=== PATIENT | female | born 1970 | race Caucasian/White ===

== ENCOUNTER 2023-01-18 14:11 | Emergency (ER) | payer MEDICAID, SELFPAY ==
[2023-01-18 14:15] VITALS: BP 154/97; PULSE 87; RESP 17; TEMP 36.4; O2SAT 97; BMI 30.4
--- NOTE | 2023-01-18 14:26 | CT_ITS ---
The [address] [address] Patient Name: TOÑO HERNANDEZ MRN: [id number] date: 1970 Sex: F Assigned Patient Location: ER Current Patient Location: ER Accession/Order Number: [id number] Exam Date: 01/18/2023 15:07 Report Date: 01/18/2023 15:37 At the request of: ELLIS MCKEON Procedure: CT abdomen pelvis wo con CT abdomen pelvis wo con, 01/18/2023 3:07 PM EDT INDICATION: Right flank pain COMPARISON: This study was compared to the prior CT of abdomen dated 11/08/2005 TECHNIQUE: Axial images of the abdomen were obtained without administration of IV contrast. Multiplanar reformatted images were generated and reviewed as needed. Dose reduction techniques were achieved by using automated exposure control and/or adjustment of mA and/or kV according to patient size and/or use of iterative reconstruction technique. FINDINGS: Lungs: The base of lungs is clear. No pleural effusion is noted. Liver and gallbladder: There is status post cholecystectomy. No abnormality of the liver is noted. Genitourinary system: No hydronephrosis or nephrolithiasis is noted. No abnormality of the urinary bladder or visualized portion of the uterus and ovaries is noted given the limitation of noncontrast study. Other solid abdominal organs: adrenal glands, pancreas, and spleen are unremarkable. Aorta: The infrarenal abdominal aorta is nonaneurysmal. Free fluid: There is no free fluid in the abdomen pelvis. Lymph node: No lymph node enlargement by size criteria is noted. Bowel: No abnormality of small or large bowel is noted. Appendix is normal. Bone: There is no suspicious osteolytic or osteoblastic lesion. Mild degenerative changes of the right SI joint. CT/CT abdomen pelvis wo con IMPRESSION: No acute finding. No nephrolithiasis. Mild degenerative changes of the right SI joint. Electronically authenticated by: TATE CAI Date: 01/18/2023 15:37
--- NOTE | 2023-01-18 14:29 | ED.BACK1 ---
HPI - Back Pain/Injury General Chief Complaint: Back Pain/Injury Stated Complaint: BACK PAIN Time Seen by Provider: 01/18/23 14:15 Source: patient Mode of arrival: walk-in Limitations: no limitations History of Present Illness HPI Narrative: patient is a 52-year-old female presents to the emergency department for two day history of right flank pain. She has not had any fevers or vomiting. She denies any pain radiation into the lower extremities. No peripheral paresthesias. She denies any mechanism of injury or trauma although she has been doing yardwork. She has no abdominal pain. She does state that she has had some diarrhea. No medications taken prior to arrival. Related Data Home Medications Medication Instructions Recorded Confirmed albuterol sulfate 90 mcg/actuation inhalation 01/18/23 aerosol inhaler (Ventolin HFA) escitalopram oxalate 20 mg tablet mg 01/18/23 hydroxyzine pamoate 25 mg capsule mg 01/18/23 loratadine 10 mg tablet mg 01/18/23 Previous Rx's Medication Instructions Recorded methocarbamol 750 mg tablet 750 mg PO TID PRN pain #20 tabs 01/18/23 methylprednisolone 4 mg tablets in See Rx Instructions .Route 01/18/23 a dose pack (Medrol (Alvaro)) .COMPLEX #21 ea Allergies Allergy/AdvReac Type Severity Reaction Status Date / Time NSAIDS (Non-Steroidal Allergy Verified 01/18/23 14:22 Anti-Inflamma Review of Systems ROS Constitutional Denies: fever or chills Cardiovascular Denies: chest pain Respiratory Denies: shortness of breath or cough Gastrointestinal Reports: diarrhea; Denies: abdominal pain, nausea or vomiting Musculoskeletal Reports: back pain; Denies: neck pain Integumentary/Breast Denies: rash Neurological Denies: headache PFSH [facility] Social History Smoking status: Former smoker Exam Narrative Exam Narrative: Gen.: Awake, alert, in no distress Head: Normocephalic, atraumatic ENT: Moist mucous membranes Respiratory: No respiratory distress, lungs clear bilaterally Cardio: Regular rate and rhythm Gastrointestinal: Abdomen is soft, nondistended and nontender to palpation, diffuse tenderness of the right flank with no rashes or color change noted. No CVA tenderness Extremities: Moves extremities equally Psych: Normal mood and affect Neuro: No focal neuro deficit Skin: Warm, dry, intact Constitutional Vital Signs, click to edit/add: Last Vital Signs Temp 97.5 F L 01/18/23 14:15 Pulse 87 01/18/23 14:15 Resp 17 01/18/23 14:15 BP 154/97 H 01/18/23 14:15 Pulse Ox 97 01/18/23 14:15 O2 Del Method Room Air 01/18/23 14:15 Course Vital Signs Vital signs: Vital Signs Temperature 97.5 F L 01/18/23 14:15 Pulse Rate 87 01/18/23 14:15 Respiratory Rate 17 01/18/23 14:15 Blood Pressure 154/97 H 01/18/23 14:15 Pulse Oximetry 97 01/18/23 14:15 Oxygen Delivery Method Room Air 01/18/23 14:15 Temperature 97.5 F L 01/18/23 14:15 Pulse Rate 87 01/18/23 14:15 Respiratory Rate 17 01/18/23 14:15 Blood Pressure 154/97 H 01/18/23 14:15 Pulse Oximetry 97 01/18/23 14:15 Oxygen Delivery Method Room Air 01/18/23 14:15 MDM - Back Pain/Injury MDM Narrative Medical decision making narrative: patient medicated for pain in the Emergency Room. Labs studies, urine specimen are unremarkable and CT of the abdomen and pelvis without contrast shows no evidence of ureteral calculi or other abnormalities. Patient discharged home with muscle relaxants and Medrol Dosepak for comfort. Follow-up with PCP and return to the emergency department if symptoms change or worsen. Medical Records Attestation: I reviewed the patient's medical records. Lab Data Attestation: I reviewed the patient's lab results. Labs: Lab Results 01/18/23 01/18/23 Range/Units 14:35 14:40 WBC 8.7 (4.0-11.0) 10^3/uL RBC 4.29 (4.20-5.40) 10^6/uL Hgb 12.7 (12.0-16.0) g/dL Hct 38.6 (36.0-48.0) % MCV 90.0 (81.0-99.0) fL MCH 29.6 (26.7-34.0) pg MCHC 32.9 (29.9-35.2) g/dL RDW 12.6 (11.0-15.0) % Plt Count 309 (150-450) 10^3/uL MPV 9.3 L (9.5-13.5) fL Neut % (Auto) 46.3 (43.0-75.0) % Lymph % (Auto) 37.7 (20.5-60.0) % [place] % (Auto) 8.3 (1.7-12.0) % Eos % (Auto) 6.9 (0.9-7.0) % Baso % (Auto) 0.6 (0.2-2.0) % Neut # (Auto) 4.0 (1.4-6.5) 10^3/uL Lymph # (Auto) 3.3 (1.2-3.8) 10^3/uL [place] # (Auto) 0.7 (0.3-0.8) 10^3/uL Eos # (Auto) 0.6 (0.0-0.7) 10^3/uL Baso # (Auto) 0.1 (0.0-0.1) 10^3/uL Abs Immat Gran (auto) 0.02 (0.00-0.03) 10^3/uL Imm/Tot Granulo (auto) 0.2 (0.0-0.5) % Sodium 140 (136-145) mmol/L Potassium 4.0 (3.5-5.1) mmol/L Chloride 105 (98-107) mmol/L Carbon Dioxide 27.0 (21.0-32.0) mmol/L Anion Gap 12.0 BUN 14.0 (7.0-18.0) mg/dL Creatinine 0.85 (0.55-1.02) mg/dL Est GFR ( Amer) >60 (>=60) Est GFR (Non-Af Amer) >60 (>=60) BUN/Creatinine Ratio 16.5 Glucose 93 (74-106) mg/dL Calcium 8.9 (8.5-10.1) mg/dL Total Bilirubin 0.6 (0.2-1.0) mg/dL AST 21 (15-37) U/L ALT 43 (14-59) U/L Alkaline Phosphatase 88 (46-116) U/L Total Protein 7.5 (6.4-8.2) g/dL Albumin 3.7 (3.4-5.0) g/dL Globulin 3.8 g/dL Albumin/Globulin Ratio 1.0 Urine Color Yellow (YELLOW) Urine Clarity Clear (CLEAR) Urine pH 6.0 (5.0-9.0) Ur Specific [place] 1.020 (1.005-1.025) Urine Protein Negative (NEG/TRACE) mg/dL Urine Glucose (UA) Negative (NEGATIVE) mg/dL Urine Ketones Negative (NEGATIVE) mg/dL Urine Occult Blood Trace-i (NEGATIVE) Urine Nitrite Negative (NEGATIVE) Urine Bilirubin Negative (NEGATIVE) Urine Urobilinogen 0.2 (0.2-1.0) EU/dL Ur Leukocyte Esterase Negative (NEGATIVE) Urine RBC 0-2 (0-2) #/HPF Urine WBC 0-2 A (NONE SEEN) #/HPF Ur Squamous Epith Cells Few A (NONE/RARE) #/LPF Urine Crystals None seen (None Seen) #/HPF Urine Bacteria Trace A (NONE SEEN) #/HPF Urine Casts Seen A (NONE SEEN) #/LPF Hyaline Casts Rare Urine Mucus None seen (NONE SEEN) Ur Culture Indicated? No Imaging Data CT scan - abdomen: Attestation: I have reviewed the pertinent imaging results. Radiologist's impression: Procedure: CT abdomen pelvis wo con CT abdomen pelvis wo con, 01/18/2023 3:07 PM EDT INDICATION: Right flank pain COMPARISON: This study was compared to the prior CT of abdomen dated 11/08/2005 TECHNIQUE: Axial images of the abdomen were obtained without administration of IV contrast. Multiplanar reformatted images were generated and reviewed as needed. Dose reduction techniques were achieved by using automated exposure control and/or adjustment of mA and/or kV according to patient size and/or use of iterative reconstruction technique. FINDINGS: Lungs: The base of lungs is clear. No pleural effusion is noted. Liver and gallbladder: There is status post cholecystectomy. No abnormality of the liver is noted. Genitourinary system: No hydronephrosis or nephrolithiasis is noted. No abnormality of the urinary bladder or visualized portion of the uterus and ovaries is noted given the limitation of noncontrast study. Other solid abdominal organs: adrenal glands, pancreas, and spleen are unremarkable. Aorta: The infrarenal abdominal aorta is nonaneurysmal. Free fluid: There is no free fluid in the abdomen pelvis. Lymph node: No lymph node enlargement by size criteria is noted. Bowel: No abnormality of small or large bowel is noted. Appendix is normal. Bone: There is no suspicious osteolytic or osteoblastic lesion. Mild degenerative changes of the right SI joint. IMPRESSION: No acute finding. No nephrolithiasis. Mild degenerative changes of the right SI joint. Electronically authenticated by: TATE CAI Date: 01/18/2023 15:37 Discharge Plan Discharge Chief Complaint: Back Pain/Injury Clinical Impression: Low back pain Patient Disposition: Home, Self-Care Time of Disposition Decision: 15:45 Condition: Good Prescriptions / Home Meds: New methocarbamol 750 mg tablet 750 mg PO TID PRN (Reason: pain) Qty: 20 0RF methylprednisolone [Medrol (Alvaro)] 4 mg tablets,dose pack See Rx Instructions .ROUTE .COMPLEX Qty: 21 0RF Rx Instructions: Taper as directed No Action albuterol sulfate [Ventolin HFA] 90 mcg/actuation HFA aerosol inhaler INHALATION loratadine 10 mg tablet hydroxyzine pamoate 25 mg capsule escitalopram oxalate 20 mg tablet Instructions: Acute Low Back Pain (ED) Stand Alone Forms: Portal Instructions Referrals: Shaikh Valiente MD [Primary Care Provider] - 1 week
[2023-01-18] MEDS: ORPHENADRINE 60 MG/ 2 ML VIAL IM (14:44)
[2023-01-18 14:45] LABS: Basophils Absolute Auto 0.1 10^3/uL (0.0-0.1); Basophils Percent Auto 0.6 % (0.2-2.0); Eosinophils Absolute Auto 0.6 10^3/uL (0.0-0.7); Eosinophils Percent Auto 6.9 % (0.9-7.0); Hematocrit 38.6 % (36.0-48.0); Hemoglobin 12.7 g/dL (12.0-16.0); Immature Granulocytes Abs Auto 0.02 10^3/uL (0.00-0.03); Immature Granulocytes Pct Auto 0.2 % (0.0-0.5); Lymphocytes Absolute Auto 3.3 10^3/uL (1.2-3.8); Lymphocytes Percent Auto 37.7 % (20.5-60.0); Mean Corpuscular HGB Conc 32.9 g/dL (29.9-35.2); Mean Corpuscular Hemoglobin 29.6 pg (26.7-34.0); Mean Platelet Volume 9.3 fL (9.5-13.5); Monocytes Absolute Auto 0.7 10^3/uL (0.3-0.8); Monocytes Percent Auto 8.3 % (1.7-12.0); Neutrophils Percent Auto 46.3 % (43.0-75.0); Platelet Count 309 10^3/uL (150-450); Red Blood Count 4.29 10^6/uL (4.20-5.40); Red Cell Distribution Width 12.6 % (11.0-15.0); White Blood Count 8.7 10^3/uL (4.0-11.0)
[2023-01-18] MEDS: ONDANSETRON 4 MG RAPDIS TABLET SL (14:45)
[2023-01-18] MEDS: OXYCODONE HCL/ACETAMINOPHEN 5MG/325MG 1 TAB PO (14:45)
[2023-01-18 14:48] LABS: Bilirubin Urine NEGATIVE (NEGATIVE); Blood Urine TRACE-I (NEGATIVE); Clarity Urine CLEAR (CLEAR); Color Urine YELLOW (YELLOW); Glucose Urine UA NEGATIVE (NEGATIVE); Ketones Urine NEGATIVE (NEGATIVE); Leukocyte Esterase Urine NEGATIVE (NEGATIVE); Nitrite Urine NEGATIVE (NEGATIVE); Protein Urine NEGATIVE (NEG/TRACE); Urobilinogen Urine 0.2 EU/dL (0.2-1.0)
[2023-01-18 14:58] LABS: Urine Microscopic Indicated YES
[2023-01-18 14:59] LABS: Alanine Aminotransferase 43 U/L (14-59); Albumin Level 3.7 g/dL (3.4-5.0); Alkaline Phosphatase 88 U/L (46-116); Aspartate Amino Transferase 21 U/L (15-37); BUN Creatinine Ratio 16.5; Bilirubin Total 0.6 mg/dL (0.2-1.0); Calcium 8.9 mg/dL (8.5-10.1); Chloride 105 mmol/L (98-107); Estimated GFR (African America >60 (>=60); Estimated GFR (Non-African Ame >60 (>=60); Globulin 3.8 g/dL; Glucose 93 mg/dL (74-106); Sodium 140 mmol/L (136-145); Total Protein 7.5 g/dL (6.4-8.2)
[2023-01-18 15:11] LABS: Bacteria Urine TRACE #/HPF (NONE SEEN); Cast Seen? SEEN #/LPF (NONE SEEN); Crystals Seen? None Seen #/HPF (None Seen); Mucus Urine NONE SEEN (NONE SEEN); RBC Urine 0-2 #/HPF (0-2); Squamous Epithelial Cell Urine FEW #/LPF (NONE/RARE); WBC Urine 0-2 #/HPF (NONE SEEN)
[2023-01-18 15:12] LABS: Hyaline Casts Urine RARE; Urine Culture Indicated NO
== END 2023-01-18 16:04 | disposition home or self-care (01) ==
PROVIDERS: Physician Assistant; Emergency Provider Emergency Medicine; PCP Internal Medicine
DX: M54.50 Low back pain, unspecified (principal); Z79.899 Other long term (current) drug therapy; Z87.891 Personal history of nicotine dependence
CPT/HCPCS: 36415; 74176; 80053; 81001; 85025; 96372; 99285

== ENCOUNTER 2024-11-15 16:59 | Emergency (ER) | payer MEDICAID, SELFPAY ==
[2024-11-15 17:04] VITALS: BP 156/106; PULSE 86; TEMP 37.1; O2SAT 96; BMI 24.6
--- NOTE | 2024-11-15 17:06 | XR_ITS ---
The [place] [id number] Patient Name: TOÑO HERNANDEZ MRN: [id number] date: 1970 Sex: F Assigned Patient Location: ED.MAIN Current Patient Location: ED.MAIN Accession/Order Number: [id number] Exam Date: 11/15/2024 17:32 Report Date: 11/15/2024 17:34 At the request of: WILLIAMS PERDOMO MD Procedure: XR hand RT min 3V XR hand RT min 3V 11/15/2024 5:23 PM SIGNS AND SYMPTOMS: Right hand pain/injury with pain greatest along the third digit at the distal interphalangeal joint PROTOCOL: Frontal, lateral, and oblique radiographs of the right hand COMPARISON: None FINDINGS: The bones are in anatomic alignment. The joint spaces are preserved. There is no fracture or dislocation. No significant soft tissue swelling. XR/XR hand RT min 3V IMPRESSION: No fracture or dislocation. Impression dictated by: Vikram Celestin M.D. 11/15/2024 5:34 PM Dictation Location: [place] [address] Electronically authenticated by: [id number] Y Date: 11/15/2024 17:34
--- NOTE | 2024-11-15 17:07 | ED_ITS ---
HPI HPI - General Adult General Chief complaint: Extremity Injury, Upper Stated complaint: RIGHT EXTREMITY INJURY Time Seen by Provider: 11/15/24 17:01 History of Present Illness HPI narrative: 54-year-old female presents for pain in her right middle finger at the DIP. She jammed her finger. No other injury was sustained and this happened a week ago. She is right-handed. Hurts to push on it. Related Data Home Medications ?Medication ?Instructions ?Recorded ?Confirmed albuterol sulfate 90 mcg/actuation inhalation 01/18/23 aerosol inhaler (Ventolin HFA) escitalopram oxalate 20 mg tablet mg 01/18/23 hydroxyzine pamoate 25 mg capsule mg 01/18/23 loratadine 10 mg tablet mg 01/18/23 Previous Rx's ?Medication ?Instructions ?Recorded methocarbamol 750 mg tablet 750 mg PO TID PRN pain #20 tabs 01/18/23 methocarbamol 750 mg tablet 750 mg PO TID PRN pain #20 tabs 01/18/23 methylprednisolone 4 mg tablets in See Rx Instructions .Route 01/18/23 a dose pack (Medrol (Alvaro)) .COMPLEX #21 ea methylprednisolone 4 mg tablets in See Rx Instructions .Route 01/18/23 a dose pack (Medrol (Alvaro)) .COMPLEX #21 ea Allergies Allergy/AdvReac Type Severity Reaction Status Date / Time NSAIDS (Non-Steroidal Allergy Severe Anaphylaxis Verified 11/15/24 17:04 Anti-Inflamma Opioid HPI Opioid Management Most Recent Opioid Data: Last Pain Scale 6 Today, 17:04 Review of Systems ROS Narrative A ten point review of systems is negative except as noted above. PFSH PFSH Social History Smoking status: Former smoker Little interest or pleasure in doing things: not at all Feeling down, depressed, or hopeless: not at all Exam Narrative Exam Narrative: Nurses note and vital signs reviewed and patient is not hypoxic. General: The patient appears well and in no apparent distress. Patient is resting comfortably on cart. Skin: Warm, dry, no pallor noted. There is no rash noted. Head: Normocephalic, atraumatic Eye: Normal conjunctiva, no drainage Ears, Nose, Mouth, and Throat: oral mucosa is moist. Nares patent. Cardiovascular: Regular Rate and Rhythm Respiratory: Patient is in no distress, no accessory muscle use, lungs are clear to auscultation, no wheezing, rales or rhonchi Back: non-tender GI: Soft and nontender Musculoskeletal: The right hand is examined. She has some tenderness at the middle finger DIP. All joints have full range of motion of the other fingers are nontender. PIP of the middle finger is not tender Neurological: Awake and alert Psychiatric: Cooperative Constitutional Vital Signs, click to edit/add: Last Vital Signs Temp 98.8 F 11/15/24 17:04 Pulse 86 11/15/24 17:04 Resp 16 11/15/24 17:04 BP 156/106 H 11/15/24 17:04 Pulse Ox 96 11/15/24 17:04 O2 Del Method Room Air 11/15/24 17:04 Course Vital Signs Vital signs: Vital Signs Temperature 98.8 F 11/15/24 17:04 Pulse Rate 86 11/15/24 17:04 Respiratory Rate 16 11/15/24 17:04 Blood Pressure 156/106 H 11/15/24 17:04 Pulse Oximetry 96 11/15/24 17:04 Oxygen Delivery Method Room Air 11/15/24 17:04 Temperature 98.8 F 11/15/24 17:04 Pulse Rate 86 11/15/24 17:04 Respiratory Rate 16 11/15/24 17:04 Blood Pressure 156/106 H 11/15/24 17:04 Pulse Oximetry 96 11/15/24 17:04 Oxygen Delivery Method Room Air 11/15/24 17:04 Medical Decision Making MDM Narrative Medical decision making narrative: X-rays negative. My clinical impression is that the patient has a sprained finger. Splint applied, application checked by me and found to be appropriate, she is neurovascular intact. Treatment diagnosis and follow-up were discussed with the patient. Differential Diagnosis Differential Diagnosis: Finger sprain, finger fracture Imaging Data Hand x-ray: Radiologist's impression: ITS Impressions Hand X-Ray 11/15/24 17:06 IMPRESSION: No fracture or dislocation. Impression dictated by: Vikram Celestin M.D. 11/15/2024 5:34 PM Dictation Location: [place] [address] Electronically authenticated by: [id number] Y Date: 11/15/2024 17:34 Discharge Plan Discharge Chief Complaint: Extremity Injury, Upper Clinical Impression: Finger sprain Patient Disposition: Home, Self-Care Time of Disposition Decision: 17:45 Condition: Good Mode of Transportation: Private Vehicle Prescriptions / Home Meds: No Action albuterol sulfate [Ventolin HFA] 90 mcg/actuation HFA aerosol inhaler INHALATION loratadine 10 mg tablet hydroxyzine pamoate 25 mg capsule escitalopram oxalate 20 mg tablet methocarbamol 750 mg tablet 750 mg PO TID PRN (Reason: pain) Qty: 20 0RF methylprednisolone [Medrol (Alvaro)] 4 mg tablets,dose pack See Rx Instructions .ROUTE .COMPLEX Qty: 21 0RF Rx Instructions: Taper as directed methocarbamol 750 mg tablet 750 mg PO TID PRN (Reason: pain) Qty: 20 0RF methylprednisolone [Medrol (Alvaro)] 4 mg tablets,dose pack See Rx Instructions .ROUTE .COMPLEX Qty: 21 0RF Rx Instructions: Taper as directed Print Language: Canadian Instructions: Finger Sprain (ED) Referrals: Shaikh Valiente MD [Primary Care Provider, Internal Medicine] - 1 week
== END 2024-11-15 18:07 | disposition home or self-care (01) ==
PROVIDERS: Emergency Provider Emergency Medicine; PCP Internal Medicine
DX: S63.612A Unspecified sprain of right middle finger, initial encounter (principal); X58.XXXA Exposure to other specified factors, initial encounter; Z87.891 Personal history of nicotine dependence
CPT/HCPCS: 73130; 99283

== ENCOUNTER 2025-04-12 21:32 | Emergency (ER) | payer MEDICAID, SELFPAY ==
[2025-04-12 21:43] VITALS: BP 146/92; PULSE 86; TEMP 36.7; O2SAT 98; BMI 25.8
--- OUTSIDE RECORDS SUMMARY | 2025-04-12 22:29 | XMS_ITS | Clinical Summary ---
Author Organization [facility] Healthcare Address [address] [place] [address] Care Team Providers Care [employer] Worker Name Role Phone Shaikh JUDY Valiente Primary Care Provider [phone] Medications MedicationSigDispense QuantityRefillsLast FilledStart DateEnd DateStatus loratadine (Claritin) 10 MG tablet Indications:Non-seasonal allergic rhinitis, unspecified triggerTake 1 tablet (10 mg) by mouth Daily 90 tablet 4Active Social History Tobacco UseTypesPacks/DayYears UsedDateSmoking Tobacco: Never Assessed CommentsUnknownSex and Gender InformationValueDate RecordedSex Assigned at Not on fileLegal ZbaJcvgve84/15/2023 6:54 PM EDTGender ByhltwgoBiemnx72/15/2023 6:54 PM EDTSexual OrientationNot on file Last Filed Vital Signs Vital SignReadingTime TakenCommentsBlood Rsweniay649/8206 12:00 PM EDT Pulse--Temperature--Respiratory Rate--Oxygen Saturation--Inhaled Oxygen Concentration--Dynftl52.2 kg (163 lb 9.6 oz)10/28/2020 12:00 PM KKDPiduda245.6 cm (5' 6 )10/28/2020 12:00 PM EDTBody Mass Index26.41010/28/2020 12:00 PM EDT Plan of Treatment Not on file Care Teams Team MemberRelationshipSpecialtyStart DateEnd Date Shaikh Valiente MD PCP - GeneralInternal Medicine06/19/23
--- OUTSIDE RECORDS SUMMARY | 2025-04-12 22:29 | XMS_ITS | Clinical Summary ---
Author Organization [employer] [facility] tem Address [id number] [address] [place] [address] Care Team Providers Care Test Desk Supervisor Name Role Phone Unavailable Primary Care Provider Unavailabl e Social History Tobacco UseTypesPacks/DayYears UsedDateSmoking Tobacco: Never AssessedChildcare AnswerDate LlvjcajlAqrckqzhsPbmcdgk52/12/2019EmploymentAnswerDate Recorded JhckbpdexyKrxguls35/12/2019CommentsUnknownSex and Gender Information ValueDate RecordedSex Assigned at BirthNot on fileLegal HitGfoxww62/06/2015 11:42 AM EDTGender IdentityNot on fileSexual OrientationNot on file Plan of Treatment Not on file Medical Devices Not on file
[2025-04-12 22:37] LABS: Hematocrit 35.4 % (36.0-48.0); Hemoglobin 12.2 g/dL (12.0-16.0); Immature Granulocytes Abs Auto 0.01 10^3/uL (0.00-0.03); Immature Granulocytes Pct Auto 0.1 % (0.0-0.5); Lymphocytes Absolute Auto 3.8 10^3/uL (1.2-3.8); Mean Corpuscular HGB Conc 34.5 g/dL (29.9-35.2); Mean Corpuscular Hemoglobin 29.7 pg (26.7-34.0); Mean Corpuscular Volume 86.1 fL (81.0-99.0); Platelet Count 286 10^3/uL (150-450); Red Blood Count 4.11 10^6/uL (4.20-5.40); White Blood Count 8.7 10^3/uL (4.0-11.0)
[2025-04-12 22:56] LABS: Alanine Aminotransferase 24 U/L (14-59); Albumin Globulin Ratio 1.2; Albumin Level 3.8 g/dL (3.4-5.0); Alkaline Phosphatase 82 U/L (46-116); Anion Gap 5.8; Aspartate Amino Transferase 17 U/L (15-37); Blood Urea Nitrogen 9.0 mg/dL (7.0-18.0); Calcium 9.2 mg/dL (8.5-10.1); Carbon Dioxide 31.0 mmol/L (21.0-32.0); Chloride 99 mmol/L (98-107); Estimated GFR (African America >60 (>=60 mL/min/1.73m^2); Estimated GFR (Non-African Ame >60 (>=60 mL/min/1.73m^2); Globulin 3.2 g/dL; Glucose 78 mg/dL (74-106); Potassium 3.8 mmol/L (3.5-5.1); Sodium 132 mmol/L (136-145); Total Protein 7.0 g/dL (6.4-8.2)
--- NOTE | 2025-04-13 02:03 | ED.GENADUL1 ---
HPI HPI - General Adult General Chief complaint: Fall Stated complaint: FALL Time Seen by Provider: 04/12/25 21:50 Source: patient Mode of arrival: walk-in Limitations: no limitations History of Present Illness HPI narrative: Patient is a 54-year-old female presenting to the emergency department for evaluation of a headache. Patient states that yesterday she had a trip and fall in her house over her pets. She states she landed on her face and hit her head. She states that she thinks she may have lost consciousness because she does not remember most of the events. She woke up facedown in a pool of her own blood. Since her trauma 24 hours ago, she has been having persistent headaches and nausea. No vomiting. No visual disturbances. She states she has no neck discomfort. She has some discomfort in her abdomen where she fell. No vomiting, diarrhea, constipation. No chest pain or shortness of breath. She is not on anticoagulation. Related Data Home Medications ?Medication ?Instructions ?Recorded ?Confirmed albuterol sulfate 90 mcg/actuation inhalation 01/18/23 aerosol inhaler (Ventolin HFA) escitalopram oxalate 20 mg tablet mg 01/18/23 hydroxyzine pamoate 25 mg capsule mg 01/18/23 loratadine 10 mg tablet mg 01/18/23 hydroxyzine pamoate 100 mg capsule mg 04/12/25 sertraline 100 mg tablet mg 04/12/25 Previous Rx's ?Medication ?Instructions ?Recorded methocarbamol 750 mg tablet 750 mg PO TID PRN pain #20 tabs 01/18/23 methocarbamol 750 mg tablet 750 mg PO TID PRN pain #20 tabs 01/18/23 methylprednisolone 4 mg tablets in See Rx Instructions .Route 01/18/23 a dose pack (Medrol (Alvaro)) .COMPLEX #21 ea methylprednisolone 4 mg tablets in See Rx Instructions .Route 01/18/23 a dose pack (Medrol (Alvaro)) .COMPLEX #21 ea Allergies Allergy/AdvReac Type Severity Reaction Status Date / Time NSAIDS (Non-Steroidal Allergy Severe Anaphylaxis Verified 04/12/25 22:30 Anti-Inflamma morphine Allergy Unknown Verified 04/12/25 22:30 Opioid HPI Opioid Management Most Recent Opioid Data: Last Pain Scale 7 04/12/25, 21:43 Review of Systems ROS Status of ROS 10 or more systems reviewed and unremarkable except as noted in history and below PFSH PFSH Social History Smoking status: Former smoker Little interest or pleasure in doing things: not at all Feeling down, depressed, or hopeless: not at all Exam Narrative Exam Narrative: CONSTITUTIONAL: Awake and alert, answering questions appropriately SKIN: Was warm and dry. Scattered ecchymosis over the left side of her abdomen and bilateral knees. HEAD: Atraumatic, normocephalic. No kohli sign. No scalp hematoma. EYES: PERRLA, No raccoon eyes. EARS, NOSE, THROAT: Superficial abrasion over the nasal bridge. No septal hematoma Neck was supple.. RESPIRATORY: Clear to auscultation bilaterally, no wheezes, crackles, or stridor, no use of accessory muscles CARDIOVASCULAR: Normal rate and regular rhythm. There is no S3, S4, murmur, rub. No chest wall tenderness or subcutaneous emphysema. GASTROINTESTINAL: There is tenderness to palpation throughout the abdomen, mainly in the left upper quadrant. No rebound tenderness or guarding. MUSCULOSKELETAL: Positive C-spine tenderness. No T/L spine midline tenderness.There was no peripheral edema or bony tenderness throughout the extremities. NEUROLOGIC: GCS 15. Facies were symmetrical. Ambulates with a steady gait. Equal strength in all 4 extremities. Constitutional Vital Signs, click to edit/add: Last Vital Signs Temp 98.1 F 04/12/25 21:43 Pulse 86 04/12/25 21:43 Resp 18 04/12/25 21:43 BP 146/92 H 04/12/25 21:43 Pulse Ox 98 04/12/25 21:43 Course Vital Signs Vital signs: Vital Signs Temperature 98.1 F 04/12/25 21:43 Pulse Rate 86 04/12/25 21:43 Respiratory Rate 18 04/12/25 21:43 Blood Pressure 146/92 H 04/12/25 21:43 Pulse Oximetry 98 04/12/25 21:43 Temperature 98.1 F 04/12/25 21:43 Pulse Rate 86 04/12/25 21:43 Respiratory Rate 18 04/12/25 21:43 Blood Pressure 146/92 H 04/12/25 21:43 Pulse Oximetry 98 04/12/25 21:43 Medical Decision Making MDM Narrative Medical decision making narrative: Patient is a 54-year-old female presenting to the emergency department for evaluation of head injury and abdominal pain after mechanical fall from a standing height 24 hours ago. Her vital signs on arrival are significant for mild hypertension, otherwise within normal limits. She is afebrile and hemodynamically stable. Examination as outlined above. Differential diagnosis includes concussion, intracranial hemorrhage, C-spine fracture, intra-abdominal injuries, or other electrolyte/metabolic derangement. IV was established and laboratory studies were obtained. CT head, CT C-spine, CT abdomen/pelvis was ordered. She was given IV Zofran for nausea. Laboratory studies were unremarkable. No significant electrolyte or metabolic derangement. No evidence of acute kidney injury. No anemia, leukocytosis, or thrombocytopenia. No transaminitis or hyperbilirubinemia. CT abdomen/pelvis independently reviewed and interpreted by myself and radiology demonstrated no acute intra-abdominal injuries. CT head independently reviewed/interpreted by myself demonstrated no acute intracranial pathology or hemorrhage. CT C-spine demonstrated no osseous abnormalities. I do believe the patient is stable for discharge. Patient's presentation is most likely consistent with closed head injury. They were instructed to follow up with their PCP for further care. Return precautions were given including any new or worsening symptoms. Patient understands and agrees to the plan. FINAL IMPRESSION: #Acute closed head injury s/p mechanical fall #Acute abdominal contusion secondary to mechanical fall DISPOSITION: Discharged home CONDITION: Good Lab Data Lab results reviewed: Yes I reviewed the patient's lab results Labs: Lab Results 04/12/25 Range/Units 22:30 WBC 8.7 (4.0-11.0) 10^3/uL RBC 4.11 L (4.20-5.40) 10^6/uL Hgb 12.2 (12.0-16.0) g/dL Hct 35.4 L (36.0-48.0) % MCV 86.1 (81.0-99.0) fL MCH 29.7 (26.7-34.0) pg MCHC 34.5 (29.9-35.2) g/dL RDW 12.0 (11.0-15.0) % Plt Count 286 (150-450) 10^3/uL MPV 9.1 L (9.5-13.5) fL Neut % (Auto) 40.8 L (43.0-75.0) % Lymph % (Auto) 43.8 (20.5-60.0) % [place] % (Auto) 9.2 (1.7-12.0) % Eos % (Auto) 5.5 (0.9-7.0) % Baso % (Auto) 0.6 (0.2-2.0) % Neut # (Auto) 3.5 (1.4-6.5) 10^3/uL Lymph # (Auto) 3.8 (1.2-3.8) 10^3/uL [place] # (Auto) 0.8 (0.3-0.8) 10^3/uL Eos # (Auto) 0.5 (0.0-0.7) 10^3/uL Baso # (Auto) 0.1 (0.0-0.1) 10^3/uL Abs Immat Gran (auto) 0.01 (0.00-0.03) 10^3/uL Imm/Tot Granulo (auto) 0.1 (0.0-0.5) % Sodium 132 L (136-145) mmol/L Potassium 3.8 (3.5-5.1) mmol/L Chloride 99 (98-107) mmol/L Carbon Dioxide 31.0 (21.0-32.0) mmol/L Anion Gap 5.8 BUN 9.0 (7.0-18.0) mg/dL Creatinine 0.80 (0.55-1.02) mg/dL Est GFR ( Amer) >60 (>=60 mL/min/1.73m^2) Est GFR (Non-Af Amer) >60 (>=60 mL/min/1.73m^2) BUN/Creatinine Ratio 11.2 Glucose 78 (74-106) mg/dL Calcium 9.2 (8.5-10.1) mg/dL Total Bilirubin 0.4 (0.2-1.0) mg/dL AST 17 (15-37) U/L ALT 24 (14-59) U/L Alkaline Phosphatase 82 (46-116) U/L Total Protein 7.0 (6.4-8.2) g/dL Albumin 3.8 (3.4-5.0) g/dL Globulin 3.2 g/dL Albumin/Globulin Ratio 1.[address] scan - head: Attestation: I personally reviewed and interpreted this imaging study as follows: Discharge Plan Discharge Chief Complaint: Fall Clinical Impression: Concussion Patient Disposition: Home, Self-Care Time of Disposition Decision: 01:37 Condition: Good Mode of Transportation: Private Vehicle Prescriptions / Home Meds: No Action hydroxyzine pamoate 100 mg capsule sertraline 100 mg tablet albuterol sulfate [Ventolin HFA] 90 mcg/actuation HFA aerosol inhaler INHALATION loratadine 10 mg tablet hydroxyzine pamoate 25 mg capsule escitalopram oxalate 20 mg tablet methocarbamol 750 mg tablet 750 mg PO TID PRN (Reason: pain) Qty: 20 0RF methylprednisolone [Medrol (Alvaro)] 4 mg tablets,dose pack See Rx Instructions .ROUTE .COMPLEX Qty: 21 0RF Rx Instructions: Taper as directed methocarbamol 750 mg tablet 750 mg PO TID PRN (Reason: pain) Qty: 20 0RF methylprednisolone [Medrol (Alvaro)] 4 mg tablets,dose pack See Rx Instructions .ROUTE .COMPLEX Qty: 21 0RF Rx Instructions: Taper as directed Print Language: Hungarian Instructions: Concussion (ED) Referrals: Vsena Cook NP [Primary Care Provider, Family Practice] - 1 week
== END 2025-04-13 02:09 | disposition home or self-care (01) ==
PROVIDERS: Emergency Provider Student in an Organized Health Care Education/Training Program; PCP Nurse Practitioner
DX: S06.0XAA Concussion with loss of consciousness status unknown, initial encounter (principal); W01.0XXA Fall on same level from slipping, tripping and stumbling without subsequent striking against object, initial encounter; Z87.891 Personal history of nicotine dependence
CPT/HCPCS: 36415; 70450; 72125; 74177; 76376; 80053; 85025; 96374; 99285; J2405; Q9967

== ENCOUNTER 2025-04-21 15:01 | Outpatient (OUT) | payer MEDICAID, SELFPAY ==
--- OUTSIDE RECORDS SUMMARY | 2025-04-21 09:44 | XMS_ITS | Continuity of Care Document ---
Author Organization [facility] Address [address] [place] [address] Phone Care Team Providers Care Centrifugal Supervisor Name Role Phone NO FAMILY, PHYSICIAN Primary Care Provider Unava Reid Everett DO Attending Provider [phone] Vesna Cook NP-C Primary Care Provider [phone] Vesna Cook [employer] WELTER-C Attending Provider Care Teams Patient Care Team Team Status: Active Member Role/Relationship Status Dates Vesna Cook NP-C Primary Care Provider Active Patient Care Team Team Status: Active Member Role/Relationship Status Dates PHYSICIAN NO FAMILY Primary Care Provider Active Start: April 12, 2025 Alejandra Davis ProviderActiveStart: April 12, 2025 Patient Care Team Team Status: Inactive Member Role/Relationship Status Dates Vesna Cook NP-C Primary Care Provider Active Start: April 21, 2025 End: April 21, 2025Chelle Larsontenmiladis ProviderActiveStart: April 21, 2025 End: April 21, 2025 Chief Complaint and Reason for Visit Chief Complaint Admit Date [facility] f/u had a fall April 21 1:48pm Reason for Visit Admit Date Contusion of rib on left side April 012024 1:48pm Post concussion syndrome April 21, 2025 1:48pm Strain of right trapezius muscle Decembe r 2024 1:48pm Allergies, Adverse Reactions, Alerts Allergen Type Severity Reaction Last Updated Verified Status ibuprofen Allergy Unknown anaphylaxis March 2:21pm Yes Active morphine Allergy Unknown Unknown Reaction April 21, 2025 2:21pm Yes Active Social History Smoking Status Status Start Date End Date Date of Observa tion Never smoked tobacco (finding) May 02, 2017 7:00pm Observation Status Observation Response Date of Response Legal Sex [facility] (finding) [facility] 1970 Family History Relationship Condition Age at Onset Recorded Date/T los mother Diabetes mellitus Unknown History of strokeUnknown Problems Active Problems Problem Diagnosis/Recorded Date Onset Date Stat us Strain of right trapezius muscle April 21, 2025 2 :39pm Unknown Active Contusion of rib on left side April 21, 2025 2:39 pm Unknown Active Seasonal allergies April 21, 2025 2:22pm Unknown Active Post concussion syndrome April 21, 2025 2:39pm Un known Active Asthma April 21, 2025 2:22pm Unknown A ctive Medications Medication Status Dose Units Route Directions Qty Days Refills S tart Date Stop Date End Date Reason(s) Instructions Adherence Tizanidine 4 mg tablet Active 4 MG PO Daily at bedtime as needed for muscle spasticity 14 0De2024 12:00amStrain of right trapezius muscleComplies with drug therapyHydroxyzine Pamoate 100 mg nwovkxmCztloi198HLMUTtacc at bedtimeApril 21, 2025 12:00amComplies with drug therapySertraline 100 mg bnllbbBunack392NH PODailyDece2024 12:00amComplies with drug therapy Relevant Diagnostic Tests and/or Laboratory Data Laboratory Results Test Collection Date/Time Result Date/Time Result Interpretation Reference Range Result Comment Performing Site Anion Gap April 12, 2025 10:30pm April 12, 2025 10:30pm 5.8 Basophils # (Auto)April 12, 2025 10:30pmDece2024 10:30pm0.1 10 3/uL0.0-0.1Albumin/Globulin RatioApril 12, 2025 10:30pmDece2024 10:30pm1.2Basophils (%) (Auto)April 12, 2025 10:30pmDe2024 10:30pm0.6 %0.2-2.0AlbuminDece2024 10:30pmDecember 2024 10:30pm 3.8 g/dL3.4-5.0Eosinophils # (Auto)April 12, 2025 10:30pmDecember 2024 10:30pm0.5 10 3/uL0.0-0.7Alkaline PhosphataseDece2024 10:30pm April 12, 2025 10:30pm82 U/Y49-022Ehihfeamkus (%) (Auto)April 12, 2025 10:30pmDecember 2024 10:30pm5.5 %0.9-7.0Alanine Aminotransferase (ALT/SGPT)April 12, 2025 10:30pmDecember 2024 10:30pm24 U/L14-59 HematocritApril 12, 2025 10:30pmDecember 2024 10:30pm35.4 %Below low ishkab22.0-48.0Aspartate Amino Transf (AST/SGOT)April 12, 2025 10:30pm April 12, 2025 10:30pm17 U/H95-99SmeebocyvjIujbldwb 13th, 2025 10:30pm April 12, 2025 10:30pm12.2 g/dL12.0-16.0BUN/Creatinine RatioDe2024 10:30pmDecember 2024 10:30pm11.2Immature Granulocyte # (Auto)April 12, 2025 10:30pmDecember 2024 10:30pm0.01 10 3/uL0.00-0.03Blood Urea NitrogenApril 12, 2025 10:30pmDecember 2024 10:30pm9.0 mg/dL7.0-18.0 Immature Granulocyte % (Auto)April 12, 2025 10:30pmDecember 2024 10:30pm0.1 %0.0-0.5Calcium LevelDe2024 10:30pmDecember 2024 10:30pm9.2 mg/dL8.5-10.1Lymphocytes # (Auto)April 12, 2025 10:30pmDecember 2024 10:30pm3.8 10 3/uL1.2-3.8Chloride LevelEvangelical [facility] 2024 10:30pm April 12, 2025 10:30pm99 mmol/F16-703Czdcrpnfllo (%) (Auto)April 12, 2025 10:30pmDecember 2024 10:30pm43.8 %20.5-60.0Carbon Dioxide Level April 12, 2025 10:30pmDecember 2024 10:30pm31.0 mmol/L21.0-32.0Mean Corpuscular HemoglobinDebaraga county memorial hospital2024 10:30pmDeceer 2024 10:30pm29.7 pg26.7-34.0CreatinineDyadkin valley community hospital2024 10:30pmDecember 2024 10:30pm0.80 mg/dL0.55-1.02Mean Corpuscular Hemoglobin Concentbaraga county memorial hospital2024 10:30pm April 12, 2025 10:30pm34.5 g/dL29.9-35.2Estimated GFR () April 12, 2025 10:30pmDece2024 10:30pm>60>=60 mL/min/1.73m 2Mean Corpuscular VolumeDebaraga county memorial hospital2024 10:30pmDeceer 2024 10:30pm86.1 fL 81.0-99.0Estimated GFR (Non- AmericanDebaraga county memorial hospital2024 10:30pmDecember 2024 10:30pm>60>=60 mL/min/1.73m 2Monocytes # (Auto)April 12, 2025 10:30pmDecember 2024 10:30pm0.8 10 3/uL0.3-0.8GlobulinDecember 2024 10:30pmDecember 2024 10:30pm3.2 g/dLMonocytes (%) (Auto)April 12, 2025 10:30pmDecember 2024 10:30pm9.2 %1.7-12.0Glucose LevelDecebanner 2024 10:30pmDecember 2024 10:30pm78 mg/eE26-269Unfg Platelet Volume April 12, 2025 10:30pmDecember 2024 10:30pm9.1 fLBelow low normal 9.5-13.5Potassium LevelDetsehootsooi medical center ([facility] 2024 10:30pmDecember 2024 10:30pm3.8 mmol/L3.5-5.1Neutrophils # (Auto)April 12, 2025 10:30pmDecember 2024 10:30pm3.5 10 3/uL1.4-6.5Sodium LevelDecebanner 2024 10:30pmDecember 2024 10:25dr258 mmol/LBelow low pjkrse750-281Tzuuwvdiwjr (%) (Auto)April 12, 2025 10:30pmDecember 2024 10:30pm40.8 %Below low fifngr47.0-75.0 Total BilirubinDecebanner 2024 10:30pmDecember 2024 10:30pm0.4 mg/dL 0.2-1.0Platelet CountDecebanner 2024 10:30pmDecember 2024 10:34ky424 10 3/qF657-222Hcrgj ProteinDeceer 2024 10:30pmDecember 2024 10:30pm7.0 g/dL6.4-8.2Red Blood CountDetsehootsooi medical center ([facility] 2024 10:30pmDecember 2024 10:30pm4.11 10 6/uLBelow low normal4.20-5.40Red Cell Distribution Width April 12, 2025 10:30pmDecemb2024 10:30pm12.0 %11.0-15.0Corrected White Blood CountDe2024 10:30pmDece2024 10:30pm8.7 10 3/uL4.0-11.0 Vital Signs Vital Reading Result Reference Range Collection Date/Time Height 68 [in_i] April 21, 2025 2:02qcLkofde90.31 kgDe2024 2:03pmBody Qweemvhtraw38.8 [degF]97.6-99.0April 21, 2025 2:03pmHeart Rate93 /xmo20-985 April 21, 2025 2:03pmRespiratory rate18 /vsy32-62Ksuebbbd2024 2:03pm Oxygen saturation by Pulse iyoxmmbp52 %95-100April 21, 2025 2:03pmBP Wggbybps314 mm[Hg]100-140April 21, 2025 2:03pmBP Vxysckmge97 mm[Hg]60-100 April 21, 2025 2:03pmBMI (Body Mass Index)25.5 kg/w8Qriqudto2024 2:03pm Advance Directives Advance Directive Response Recorded Date/ Time Advance Directives No March 2:19pm Insurance Providers Guarantor Jodi Goode , M Address [address] [facility] [address] [facility] [address]Vdmzvvi Info.Home Phone: Coverage Status Update:2025 Payer Group Member ID Coverage Type Subscriber Relationship to Subscriber Effective Date Expiration Date [employer] LEV[place] [id number] C Naderer Id: [id number] [address] [facility] [address] Home Phone: Email: [email or web address] Encounters Encounter Location(s) Arrival/Admit Date Discharge/Departure Date Discharge/Departure Disposition Provider(s) Non-patient / Non-visit -[facility] Vaughn Rosa April 12, 2025 10:30pm Kelsey Grimesyorksean Physician/Provider Office Visit-[facility] Family Medicine [facility] 2024 1:48pmDeceer 2024 2:43pmDischarged to home care or self care (routine discharge)STEPHANIA LarsonC Recent Diagnosis Onset Date Admit Date Contusion of rib on left side Unknown De cember 2024 1:48pm Post concussion syndrome Unknown Decembe r 2024 1:48pm Strain of right trapezius muscle Unknown April 21, 2025 1:48pm Assessments Diagnosis Onset Date Resolution Status Admit Date Contusion of rib on left side acuteDeceer 2024 1:48pmPost concussion syndromeacuteOkcebanner 2024 1:48pmStrain of right trapezius muscleacuteOkcebanner 2024 1:48pm Plan of Treatment Future Tests Future scheduled test information is unavailable Pending Tests Test Name Ordered Date Scheduled Date XR ribs LT 2V April 21, 2025 2:39pm Future Visits Future appointment information is unavailable Future Procedures Future procedure information is unavailable Future Medications Future medication information is unavailable Patient Instructions Patient instructions are unavailable
--- OUTSIDE RECORDS SUMMARY | 2025-04-21 15:05 | XMS_ITS | Clinical Summary ---
Author Organization [facility] Healthcare Address [address] [place] [address] Care Team Providers Care Video Arcade Manager Name Role Phone Shaikh JUDY Valiente Primary Care Provider [phone] Medications MedicationSigDispense QuantityRefillsLast FilledStart DateEnd DateStatus loratadine (Claritin) 10 MG tablet Indications:Non-seasonal allergic rhinitis, unspecified triggerTake 1 tablet (10 mg) by mouth Daily 90 tablet 4Active Social History Tobacco UseTypesPacks/DayYears UsedDateSmoking Tobacco: Never Assessed CommentsUnknownSex and Gender InformationValueDate RecordedSex Assigned at Not on fileLegal KgrKssmhn02/15/2023 6:54 PM EDTGender IztspilxXwwegg25/15/2023 6:54 PM EDTSexual OrientationNot on file Last Filed Vital Signs Vital SignReadingTime TakenCommentsBlood Rqijcudv526/8206 12:00 PM EDT Pulse--Temperature--Respiratory Rate--Oxygen Saturation--Inhaled Oxygen Concentration--Hbebfl22.2 kg (163 lb 9.6 oz)10/28/2020 12:00 PM ZTSEzwuzp446.6 cm (5' 6 )10/28/2020 12:00 PM EDTBody Mass Index26.41010/28/2020 12:00 PM EDT Plan of Treatment Not on file Care Teams Team MemberRelationshipSpecialtyStart DateEnd Date Shaikh Valiente MD PCP - GeneralInternal Medicine06/19/23
--- NOTE | 2025-04-21 15:07 | XR_ITS ---
The [address] [address] Patient Name: TOÑO HERNANDEZ MRN: [id number] date: 1970 Sex: F Assigned Patient Location: [facility] Current Patient Location: Accession/Order Number: [id number] Exam Date: 04/21/2025 15:15 Report Date: 04/22/2025 10:06 At the request of: ARTURO NYE NP Procedure: XR ribs LT 2V LEFT RIBS - 3 views COMPARISON: Chest x-ray 12/18/2020 CLINICAL DATA: Patient fell 10 days ago and has left rib pain and bruising. AP and both oblique views of the left ribs were obtained. The ribs show no acute displaced fractures or bony destruction. On the AP view, there is minor blunting of the left costophrenic angle which could be pleural and/or parenchymal change. The lungs are otherwise clear. No pneumothorax is seen. The heart is normal size. Endplate spurring is present at the spine. XR/XR ribs LT 2V IMPRESSION: MINOR LEFT BASILAR PLEURAL-PARENCHYMAL CHANGE. NO OBVIOUS ACUTE RIB FINDINGS. Impression dictated by: Leann Matute M.D. 04/22/2025 10:06 AM Dictation Location: [employer] Electronically authenticated by: [id number] Y Date: 04/22/2025 10:06
== END 2025-04-21 15:02 | disposition home or self-care (01) ==
LOC: RAD 15:03
PROVIDERS: PCP Nurse Practitioner; Visit Provider Nurse Practitioner
DX: S29.8XXA Other specified injuries of thorax, initial encounter (principal)
CPT/HCPCS: 71100